=== PATIENT | female | born 1950 | race Caucasian/White ===

== ENCOUNTER → 2017-08-01 | Outpatient (CLI) | payer OTHER | END | disposition home or self-care (01) | LOC: KCIC MRI 10:29 | DX: S93.499A Sprain of other ligament of unspecified ankle, initial encounter (principal); M65.9 Synovitis and tenosynovitis, unspecified; X58.XXXA Exposure to other specified factors, initial encounter; Y93.89 Activity, other specified; Y92.89 Other specified places as the place of occurrence of the external cause; Y99.8 Other external cause status | CPT/HCPCS: 73721 ==